=== PATIENT | female | born 1935 | race African-American/Black ===

== ENCOUNTER → 2017-08-04 | Emergency (ER) | payer BC, MEDICAID ==
[~2017-08-04] VITALS: Ht 160 cm; Wt 52.0 kg
[~2017-08-04] MED LIST: ALLOPURINAL; AMLO10TA80 PO; CYCLOBENZAPRINE 10MG TABLET PO ONE; GABA-531 PO; KETOROLAC 30MG/ML VIAL IM ONE; SIMVASTATIN
[2017-08-07 10:07] VITALS: BP 163/81
== END | disposition home or self-care (01) ==
LOC: ER 19:12
DX: M54.12 Radiculopathy, cervical region (principal); E78.00 Pure hypercholesterolemia, unspecified; I10 Essential (primary) hypertension; M10.9 Gout, unspecified; Z88.0 Allergy status to penicillin; Z88.5 Allergy status to narcotic agent; Z90.710 Acquired absence of both cervix and uterus
CPT/HCPCS: 96372; 99283; J1885

== ENCOUNTER 2018-06-13 18:31 | Inpatient (IN) | payer BC, MEDICAID ==
[~2018-06-13] VITALS: Ht 167.6 cm; Wt 55.3 kg
[~2018-06-13 18:31] MED LIST changes: -CYCLOBENZAPRINE 10MG TABLET PO ONE; -KETOROLAC 30MG/ML VIAL IM ONE
[2018-06-13] MEDS ORDERED: IBUPROFEN 400MG TABLET PO ONE (22:00)
[2018-06-14] MEDS ORDERED: IBUPROFEN 600MG TABLET PO PRN (08:45)
[2018-06-14 09:01] LABS: BASOPHILS % 0.9 % (0.0-2.0); EOSINOPHILS % 2.5 % (0.0-5.0); HEMATOCRIT. 37.8 % (36.0-48.0); HEMOGLOBIN. 12.6 g/dL (12.0-16.0); LYMPHOCYTES % 16.4 % (20.0-50.0); MEAN CORPUSCULAR VOLUME 89.9 fL (81.0-99.0); MEAN PLATELET VOLUME 8.2 fl (7.4-10.4); MONOCYTES % 10.6 % (2.0-8.0); NEUTROPHILS % 69.6 % (40.0-76.0); PLATELET 158 x1000/uL (130-400); RED BLOOD CELL COUNT 4.21 mill/uL (4.2-5.4); RED CELL DISTRIBUTION WIDTH 12.7 % (11.6-14.6)
[2018-06-14 09:40] LABS: CLARITY URINE CLEAR (CLEAR); COLOR URINE YELLOW (YELLOW); KETONES URINE NEGATIVE (NEGATIVE); LEUKOCYTE ESTERASE URINE NEGATIVE (NEGATIVE); NITRITE URINE NEGATIVE (NEGATIVE); OCCULT BLOOD URINE NEGATIVE (NEGATIVE); PH URINE 7.5 (4.5-8.0); PROTEIN URINE NEGATIVE (NEGATIVE); UROBILINOGEN URINE 0.2 E.U./dL (0.2-1.0)
[2018-06-14 09:43] LABS: CHLORIDE 102 mEq/L (98-107)
[2018-06-14 10:58] VITALS: BP 124/55
[2018-06-14] MEDS ORDERED: AMLO5TAB88 MT (11:08)
[2018-06-14] MEDS ORDERED: SIMV20TA6 MT (11:08)
[2018-06-14] MEDS ORDERED: ALLO300T2 MT (11:08)
[2018-06-14 12:00] VITALS: BP_SYST 116; BP_SYST 129; BP_DIAS 66
[2018-06-14] MEDS ORDERED: GUAIFENESIN 200MG/10ML SUGAR FREE UDC PO PRN (12:15)
[2018-06-14] MEDS ORDERED: CLONIDINE 0.1MG TABLET PO PRN (12:15)
[2018-06-14] MEDS ORDERED: NA PHOS,M-B/NA PHOS,DI-BA ENEMA 118ML PR PRN (12:15)
[2018-06-14] MEDS ORDERED: MAGNESIUM/ALUMINUM HYDROXIDE/SIMETHICONE 30ML UDC PO PRN (12:15)
[2018-06-14] MEDS ORDERED: DIPHENHYDRAMINE 50MG/ML VIAL IV PRN (12:15)
[2018-06-14] MEDS ORDERED: ACETAMINOPHEN 650MG SUPP PR PRN (12:15)
[2018-06-14] MEDS ORDERED: HYDROCODONE/ACETAMINOPHEN 5/325MG TABLET PO PRN (12:15)
[2018-06-14] MEDS ORDERED: ONDANSETRON HCL 4MG/2ML INJ IV PRN (12:15)
[2018-06-14] MEDS ORDERED: LORAZEPAM 0.5MG TABLET PO PRN (12:15)
[2018-06-14] MEDS ORDERED: DOCUSATE SODIUM 100MG CAPSULE PO PRN (12:15)
[2018-06-14] MEDS ORDERED: IPRATROPIUM/ALBUTEROL 0.5-3(2.5)MG/3ML NEB INH PRN (12:15)
[2018-06-14] MEDS: ACETAMINOPHEN 325MG TABLET PO PRN (13:56)
[2018-06-14 16:00] VITALS: BP 123/65
[2018-06-14 20:00] VITALS: BP 116/60
[2018-06-15] VITALS: BP 108/50
[2018-06-15 04:00] VITALS: BP 136/67
[2018-06-15 06:05] LABS: BASOPHILS % 0.5 % (0.0-2.0); EOSINOPHILS % 3.8 % (0.0-5.0); HEMATOCRIT. 34.6 % (36.0-48.0); HEMOGLOBIN. 11.4 g/dL (12.0-16.0); LYMPHOCYTES % 28.5 % (20.0-50.0); MEAN CORPUSCULAR HEMOGLOBIN 29.5 pg (28.0-32.0); MEAN CORPUSCULAR VOLUME 89.8 fL (81.0-99.0); MEAN PLATELET VOLUME 8.5 fl (7.4-10.4); MONOCYTES % 14.4 % (2.0-8.0); NEUTROPHILS % 52.8 % (40.0-76.0); PLATELET 147 x1000/uL (130-400); RED BLOOD CELL COUNT 3.86 mill/uL (4.2-5.4); RED CELL DISTRIBUTION WIDTH 12.8 % (11.6-14.6)
[2018-06-15 06:20] LABS: CHLORIDE 100 mEq/L (98-107)
[2018-06-15 06:29] LABS: LDL CHOLESTEROL 93 mg/dL (5-100)
[2018-06-15 06:30] LABS: HDL CHOLESTEROL 103 mg/dL (40-59)
[2018-06-15 06:31] LABS: T4 FREE 1.05 ng/dL (0.76-1.46)
[2018-06-15 08:00] VITALS: BP 125/58
[2018-06-15 12:00] VITALS: BP 128/68
[2018-06-15 16:00] VITALS: BP 120/57
[2018-06-15 20:00] VITALS: BP 115/60
[2018-06-16] VITALS: BP 126/70
[2018-06-16 04:00] VITALS: BP 132/69
[2018-06-16 08:00] VITALS: BP 145/68
[2018-06-16 08:22] LABS: *AMPHETAMINES SCREEN URINE NEGATIVE (NEGATIVE); *BARBITURATES SCREEN URINE NEGATIVE (NEGATIVE); *BENZODIAZEPINES SCREEN URINE NEGATIVE (NEGATIVE)
[2018-06-16 08:23] LABS: *COCAINE SCREEN URINE NEGATIVE (NEGATIVE); CANNABINOID URINE SCREEN NEGATIVE (NEGATIVE); METHADONE URINE SCREEN NEGATIVE (NEGATIVE); OPIATES URINE SCREEN NEGATIVE (NEGATIVE); PHENCYCLIDINE URINE SCREEN NEGATIVE (NEGATIVE)
[2018-06-16 12:00] VITALS: BP 138/61
[2018-06-16] MEDS ORDERED: MEDICATION NOT ON FORMULARY EA (Amlodipine Besylate 1 TAB) MT SCH (14:15)
[2018-06-16] MEDS ORDERED: LACTULOSE 20G/30ML UDC PO NR (14:15)
[2018-06-16] MEDS ORDERED: LORAZEPAM 0.5MG TABLET PO PRN (14:17)
[2018-06-16] MEDS: ALLOPURINOL 300 MG TABLET PO SCH (14:30)
[2018-06-16] MEDS: AMLODIPINE 5MG TABLET PO SCH (15:59)
[2018-06-16 16:00] VITALS: BP 168/83
[2018-06-16 20:00] VITALS: BP 140/69
[2018-06-16] MEDS: ACETAMINOPHEN 325MG TABLET PO PRN (20:40)
[2018-06-16] MEDS ORDERED: ATORVASTATIN CALCIUM 10MG TABLET PO SCH (21:00)
[2018-06-16] MEDS ORDERED: LACTULOSE 20G/30ML UDC PO PRN (21:00)
[2018-06-16] MEDS ORDERED: MEDICATION NOT ON FORMULARY EA (Simvastatin 1 TAB) MT SCH (21:00)
[2018-06-17] VITALS: BP 172/80
[2018-06-17 04:00] VITALS: BP 116/51
[2018-06-17 08:00] VITALS: BP 144/73
[2018-06-17] MEDS ORDERED: MEDICATION NOT ON FORMULARY EA (Allopurinol 1 TAB) MT SCH (09:00)
[2018-06-17] MEDS: ALLOPURINOL 300 MG TABLET PO SCH (09:00)
[2018-06-17] MEDS: AMLODIPINE 5MG TABLET PO SCH (09:00)
[2018-06-17 11:54] VITALS: BP 129/65
[2018-06-17 16:00] VITALS: BP 132/56
[2018-06-17 16:22] VITALS: BP 121/60
== END 2018-06-17 19:00 | DRG 563 ==
LOC: ER 18:58 → 6EST 06-14 08:40 → ENRESERV 06-14 10:02
PROVIDERS: ADMIT Internal Medicine; ATTEND Internal Medicine
DX: S92.311A Displaced fracture of first metatarsal bone, right foot, initial encounter for closed fracture (principal); S93.491A Sprain of other ligament of right ankle, initial encounter; W18.30XA Fall on same level, unspecified, initial encounter; I10 Essential (primary) hypertension; M48.02 Spinal stenosis, cervical region; E80.6 Other disorders of bilirubin metabolism; R73.9 Hyperglycemia, unspecified; R26.9 Unspecified abnormalities of gait and mobility; W18.39XA Other fall on same level, initial encounter; E78.5 Hyperlipidemia, unspecified; M10.9 Gout, unspecified; M85.80 Other specified disorders of bone density and structure, unspecified site; E78.00 Pure hypercholesterolemia, unspecified; K59.00 Constipation, unspecified; Z88.5 Allergy status to narcotic agent; Z90.710 Acquired absence of both cervix and uterus; Z88.0 Allergy status to penicillin; Y93.89 Activity, other specified; Y92.89 Other specified places as the place of occurrence of the external cause; Y99.8 Other external cause status
CPT/HCPCS: 36415; 71045; 73610; 73630; 80061; 80305; 84439; 84443; 84550; 93005; 93970; 97162; 99285